=== PATIENT | male | born 1935 | race Caucasian/White ===

== ENCOUNTER → 2017-02-26 | Outpatient (CLI) | payer OTHER, BC ==
[~2017-02-26] MED LIST: GADOBUTROL 10 ML VIAL IVP ONE
[2017-02-26 15:42] LABS: CREATININE 0.9 mg/dL (0.7-1.3); GLOMERULAR FILTRATION RATE > 60
== END ==
LOC: FIMAGING 14:46
PROVIDERS: ATTEND Internal Medicine
DX: R41.3 Other amnesia (principal); G62.9 Polyneuropathy, unspecified
CPT/HCPCS: 70553; A9585

== ENCOUNTER → 2017-03-10 | Outpatient (CLI) | payer OTHER, BC | LOC: BHFA 14:45 | PROVIDERS: ATTEND Internal Medicine Cardiovascular Disease | DX: G45.9 Transient cerebral ischemic attack, unspecified (principal) ==

== ENCOUNTER → 2018-09-11 | Outpatient (CLI) | payer OTHER, BC | LOC: BHFA 15:30 | PROVIDERS: ATTEND Internal Medicine Cardiovascular Disease | DX: R09.89 Other specified symptoms and signs involving the circulatory and respiratory systems (principal) ==

== ENCOUNTER → 2018-09-22 | Outpatient (CLI) | payer OTHER, BC ==
[~2018-09-22] MED LIST changes: -GADOBUTROL 10 ML VIAL IVP ONE; +IOPAMIDOL (ISOVUE 370) 100 ML BTL IV ONE
== END ==
LOC: FIMAGING 15:20
PROVIDERS: ATTEND Internal Medicine Interventional Cardiology
DX: G62.9 Polyneuropathy, unspecified (principal); I70.0 Atherosclerosis of aorta; I70.203 Unspecified atherosclerosis of native arteries of extremities, bilateral legs
CPT/HCPCS: 75635; Q9967; 82565-PO

== ENCOUNTER → 2019-02-20 | Outpatient (CLI) | payer OTHER, BC | LOC: FIMAGING 13:32 | PROVIDERS: ATTEND Internal Medicine Hematology & Oncology | DX: M85.832 Other specified disorders of bone density and structure, left forearm (principal) ==